=== PATIENT | female | born 1935 | race Caucasian/White ===

== ENCOUNTER → 2017-01-31 | Outpatient (REF) | payer MEDICARE ==
[2017-01-31 12:21] LABS: ALBUMIN 4.2 GM/DL (3.2-5.2); ALBUMIN/GLOBULIN RATIO 1.08 (1.00-1.93); BILIRUBIN,TOTAL 0.4 MG/DL (0.2-1.0); CALCIUM LEVEL 9.5 MG/DL (8.8-10.2); CREATININE FOR GFR 1.11 MG/DL (0.55-1.02); GLOMERULAR FILTRATION RATE 50.5 (>39); TOTAL PROTEIN 8.1 GM/DL (6.4-8.2)
[2017-01-31 12:38] LABS: BASO % 0.4 % (0.0-1.0); EOS # 0.2 K/mm3 (0.0-0.50); LARGE UNSTAINED CELL # 0.1 K/mm3 (0.0-0.4); LARGE UNSTAINED CELL % 1.6 % (0.0-4.0); LYMPH # 1.6 K/mm3 (1.5-4.5); MEAN CORPUSCULAR HEMOGLOBIN 28.1 pg (27.0-33.0); MEAN CORPUSCULAR HGB CONC 31.3 g/dl (32.0-36.5); MEAN CORPUSCULAR VOLUME 89.8 fl (80.0-96.0); MONO # 0.4 K/mm3 (0.0-0.8); MONO % 6.1 % (0.0-5.0); NEUTROPHILS # 3.7 K/mm3 (1.8-7.7); NEUTROPHILS % 62.9 % (36.0-66.0); PLATELET COUNT, AUTOMATED 287 k/mm3 (150-450); RED CELL DISTRIBUTION WIDTH 13.9 % (11.5-14.5); WHITE BLOOD COUNT 5.8 K/mm3 (4.0-10.0)
== END ==
LOC: M SFHCPLAZ 07:58
PROVIDERS: ATTEND Nurse Practitioner Family
DX: H11.32 Conjunctival hemorrhage, left eye (principal); I10 Essential (primary) hypertension; E78.2 Mixed hyperlipidemia
CPT/HCPCS: 36415; 80053; 80061; 85025; G0463

== ENCOUNTER → 2017-07-30 | Outpatient (REF) | payer MEDICARE ==
[2017-07-30 12:11] LABS: ALBUMIN/GLOBULIN RATIO 0.91 (1.00-1.93); BILIRUBIN,TOTAL 0.4 MG/DL (0.2-1.0); CALCIUM LEVEL 9.7 MG/DL (8.8-10.2); CREATININE FOR GFR 1.06 MG/DL (0.55-1.02); FREE T4 0.91 NG/DL (0.76-1.46); GLOMERULAR FILTRATION RATE 53.1 (>32); POTASSIUM SERUM 4.9 MEQ/L (3.5-5.1); TOTAL PROTEIN 8.4 GM/DL (6.4-8.2)
== END ==
LOC: M SFHCPLAZ 11:22
PROVIDERS: ATTEND Family Medicine
DX: I10 Essential (primary) hypertension (principal); E78.2 Mixed hyperlipidemia; F32.9 Major depressive disorder, single episode, unspecified

== ENCOUNTER → 2018-08-22 | Outpatient (REF) | payer MEDICARE ==
[2018-08-22 12:46] LABS: ALBUMIN 4.3 GM/DL (3.2-5.2); ALBUMIN/GLOBULIN RATIO 1.13 (1.00-1.93); ALKALINE PHOSPHATASE 64 U/L (45-117); ALT/SGPT 17 U/L (12-78); ANION GAP 10 MEQ/L (8-16); AST/SGOT 18 U/L (7-37); BILIRUBIN,TOTAL 0.4 MG/DL (0.2-1.0); BLOOD UREA NITROGEN 21 MG/DL (7-18); CALCIUM LEVEL 9.7 MG/DL (8.8-10.2); CARBON DIOXIDE LEVEL 28 MEQ/L (21-32); CHLORIDE LEVEL 106 MEQ/L (98-107); CHOLESTEROL LEVEL 195 MG/DL (<200); CHOLESTEROL RISK RATIO 3.305 (<5); CREATININE FOR GFR 1.08 MG/DL (0.55-1.30); FREE T4 0.92 NG/DL (0.76-1.46); GLOMERULAR FILTRATION RATE 51.8 (>32); GLUCOSE, FASTING 105 MG/DL (70-100); HDL CHOLESTEROL 59 MG/DL (>40); LDL CHOLESTEROL 59 MG/DL (<100); NON-HDL-C 136 MG/DL; POTASSIUM SERUM 4.9 MEQ/L (3.5-5.1); SODIUM LEVEL 144 MEQ/L (136-145); THYROID STIMULATING HORMONE 0.662 uIU/ML (0.358-3.740); TOTAL PROTEIN 8.1 GM/DL (6.4-8.2); TRIGLYCERIDES LEVEL 385 MG/DL (<150)
== END ==
LOC: M SFHCPLAZ 08:38
DX: F32.9 Major depressive disorder, single episode, unspecified (principal); E78.2 Mixed hyperlipidemia
CPT/HCPCS: 84443

== ENCOUNTER → 2019-08-05 | Outpatient (REF) | payer MEDICARE ==
[2019-08-05 10:56] LABS: ALBUMIN 3.9 GM/DL (3.2-5.2); BILIRUBIN,TOTAL 0.3 MG/DL (0.2-1.0); CALCIUM LEVEL 9.5 MG/DL (8.8-10.2); CHOLESTEROL RISK RATIO 3.033 (<5); CREATININE FOR GFR 1.14 MG/DL (0.55-1.30); GLOMERULAR FILTRATION RATE 48.6 (>32); POTASSIUM SERUM 5.5 MEQ/L (3.5-5.1); TOTAL PROTEIN 8.1 GM/DL (6.4-8.2)
== END ==
LOC: M SFHCPLAZ 08:14
PROVIDERS: ATTEND Nurse Practitioner Family
DX: E78.2 Mixed hyperlipidemia (principal)

== ENCOUNTER → 2019-08-12 | Outpatient (REF) | payer MEDICARE ==
[2019-08-12 12:55] LABS: CALCIUM LEVEL 9.8 MG/DL (8.8-10.2); CREATININE FOR GFR 1.19 MG/DL (0.55-1.30); GLOMERULAR FILTRATION RATE 46.2 (>32); POTASSIUM SERUM 5.4 MEQ/L (3.5-5.1)
== END ==
LOC: M SFHCPLAZ 08:26
PROVIDERS: ATTEND Nurse Practitioner Family
DX: E87.5 Hyperkalemia (principal); Z23 Encounter for immunization
CPT/HCPCS: 36415; 80048; 90682; G0008; G0463

== ENCOUNTER → 2019-08-21 | Outpatient (REF) | payer MEDICARE ==
[2019-08-21 11:42] LABS: CALCIUM LEVEL 9.6 MG/DL (8.8-10.2); CREATININE FOR GFR 1.16 MG/DL (0.55-1.30); GLOMERULAR FILTRATION RATE 47.6 (>32); POTASSIUM SERUM 5.4 MEQ/L (3.5-5.1)
== END ==
LOC: M SFHCPLAZ 08:08
PROVIDERS: ATTEND Nurse Practitioner Family
DX: E87.5 Hyperkalemia (principal)

== ENCOUNTER → 2019-09-04 | Outpatient (REF) | payer MEDICARE ==
[2019-09-04 11:35] LABS: CALCIUM LEVEL 10.1 MG/DL (8.8-10.2); CREATININE FOR GFR 1.16 MG/DL (0.55-1.30); GLOMERULAR FILTRATION RATE 47.6 (>32); POTASSIUM SERUM 5.4 MEQ/L (3.5-5.1)
== END ==
LOC: M SFHCPLAZ 08:07
PROVIDERS: ATTEND Nurse Practitioner Family
DX: I10 Essential (primary) hypertension (principal)

== ENCOUNTER → 2019-09-18 | Outpatient (REF) | payer MEDICARE ==
[2019-09-18 11:21] LABS: CALCIUM LEVEL 9.8 MG/DL (8.8-10.2); CREATININE FOR GFR 1.19 MG/DL (0.55-1.30); GLOMERULAR FILTRATION RATE 46.2 (>32)
== END ==
LOC: M SFHCPLAZ 08:06
PROVIDERS: ATTEND Nurse Practitioner Family
DX: E87.5 Hyperkalemia (principal)

== ENCOUNTER → 2020-07-29 | Outpatient (REF) | payer MEDICARE ==
[2020-07-29 14:33] LABS: ALBUMIN 4.2 GM/DL (3.2-5.2); BILIRUBIN,TOTAL 0.4 MG/DL (0.2-1.0); CALCIUM LEVEL 10.3 MG/DL (8.8-10.2); CHOLESTEROL RISK RATIO 3.035 (<5); CREATININE FOR GFR 1.11 MG/DL (0.55-1.30); POTASSIUM SERUM 4.6 MEQ/L (3.5-5.1); TOTAL PROTEIN 8.1 GM/DL (6.4-8.2)
== END ==
LOC: M PLALAB 09:21
PROVIDERS: ATTEND Nurse Practitioner Family
DX: I12.9 Hypertensive chronic kidney disease with stage 1 through stage 4 chronic kidney disease, or unspecified chronic kidney disease (principal); E78.2 Mixed hyperlipidemia; N18.9 Chronic kidney disease, unspecified

== ENCOUNTER → 2021-01-19 | Outpatient (REF) | payer MEDICARE ==
[2021-01-19 18:32] LABS: HEMOGLOBIN A1c 5.4 %
[2021-01-19 18:37] LABS: BLOOD UREA NITROGEN 16 MG/DL (7-18); CALCIUM LEVEL 9.6 MG/DL (8.8-10.2); CARBON DIOXIDE LEVEL 28 MEQ/L (21-32); CHLORIDE LEVEL 110 MEQ/L (98-107); CREATININE FOR GFR 0.91 MG/DL (0.55-1.30); GLOMERULAR FILTRATION RATE > 60.0 (>32); GLUCOSE, FASTING 107 MG/DL (70-100); POTASSIUM SERUM 4.6 MEQ/L (3.5-5.1); SODIUM LEVEL 143 MEQ/L (136-145); URIC ACID 3.9 MG/DL (2.6-6.0)
== END ==
LOC: M SFHCPLAZ 15:41
PROVIDERS: ATTEND Nurse Practitioner Family
DX: R73.01 Impaired fasting glucose (principal); I12.9 Hypertensive chronic kidney disease with stage 1 through stage 4 chronic kidney disease, or unspecified chronic kidney disease; M25.541 Pain in joints of right hand

== ENCOUNTER → 2021-01-19 | Outpatient (CLI) | payer MEDICARE ==
--- NOTE | 2021-01-20 08:33 | REPPI ---
INDICATION: PAIN RIGHT HAND. COMPARISON: None. TECHNIQUE: Four views of the right hand are presented. FINDINGS: Four views of the right hand demonstrate diffuse osteoporosis. There is degenerative widening of the navicular lunate interval. 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 There is subcortical cyst formation in the navicula. There is mild osteoarthritis at the 1st carpometacarpal articulation. Moderate osteoarthritic changes are seen at the DIP joints of the index and long and small finger. IP joint osteoarthritic spurring is seen at the thumb. There is mild spurring at the PIP joints of the index and long finger. Soft tissue swelling is seen most notably at the index finger DIP and the long finger PIP articulations. No acute erosive changes are seen. No fracture is seen.. . No opaque foreign body noted. IMPRESSION: Osteoarthritic changes. Diffuse osteoporosis. No acute bony abnormality.. <Electronically signed by Dimitry Domingo > 01/20/21 [id number]
== END ==
LOC: M PLAIMG 15:43
PROVIDERS: ATTEND Nurse Practitioner Family
DX: M19.041 Primary osteoarthritis, right hand (principal); M25.541 Pain in joints of right hand; R73.01 Impaired fasting glucose; I12.9 Hypertensive chronic kidney disease with stage 1 through stage 4 chronic kidney disease, or unspecified chronic kidney disease
CPT/HCPCS: 36415; 73130; 80048; 83036; 84550; G0463

== ENCOUNTER → 2021-03-07 | Outpatient (CLI) | payer MEDICARE ==
--- NOTE | 2021-03-07 13:33 | DEXAMM ---
INDICATION: M83.0 AGE REL OSTEOPOROSIS W/O FX. COMPARISON: None. TECHNIQUE: Bone density was measured using dual-energy x-ray absorptiometry (DEXA). FINDINGS: AP SPINE L1-L4 BMD 1.556 g/cm2 Young Adult T-Score 2.9 Age Matched Z-Score 4.8. LT FEMUR, TOTAL BMD 0.805 g/cm2 Young Adult T-Score -1.6 Age Matched Z-Score 0.6. LT NECK BMD 0.824 g/cm2 Young Adult T-Score -1.5 Age Matched Z-Score 0.8. RT FEMUR, TOTAL BMD 0.840 g/cm2 Young Adult T-Score -1.3 Age Matched Z-Score 0.9. RT NECK BMD 0.780 g/cm2 Young Adult T-Score -1.9 Age Matched Z-Score 0.5. IMPRESSION: There is normal bone density of the spine. There is low bone density of the left hip. There is low bone density of the right hip. FOLLOW-UP: Recommendation for the next bone density exam: 2 years. <Electronically signed by Ovidio Baxter > 03/07/21 [id number]
== END ==
LOC: M WHC 12:42
PROVIDERS: ATTEND Nurse Practitioner Family
DX: M81.0 Age-related osteoporosis without current pathological fracture (principal)

== ENCOUNTER → 2021-08-18 | Outpatient (CLI) | payer MEDICARE ==
[2021-08-18 13:36] LABS: HEMOGLOBIN A1c 5.3 %
[2021-08-18 14:01] LABS: CREATININE FOR GFR 1.01 MG/DL (0.55-1.30); GLOMERULAR FILTRATION RATE 55.6 (>32); POTASSIUM SERUM 4.7 MEQ/L (3.5-5.1)
[2021-08-18 14:02] LABS: ALBUMIN 3.8 GM/DL (3.2-5.2); BILIRUBIN,TOTAL 0.3 MG/DL (0.2-1.0); CALCIUM LEVEL 9.3 MG/DL (8.8-10.2); TOTAL PROTEIN 7.7 GM/DL (6.4-8.2)
[2021-08-18 14:12] LABS: MALB URINE SIEMENS 23.8 MG/L; MAU/CREAT RATIO 18.1 MCG/MG (0.0-30.0)
== END ==
LOC: M PLALAB 11:07
PROVIDERS: ATTEND Nurse Practitioner Family
DX: I12.9 Hypertensive chronic kidney disease with stage 1 through stage 4 chronic kidney disease, or unspecified chronic kidney disease (principal); R73.01 Impaired fasting glucose; Z23 Encounter for immunization
CPT/HCPCS: 36415; 80053; 82043; 83036; 90682; G0008; G0463

== ENCOUNTER → 2022-02-23 | Outpatient (CLI) | payer MEDICARE ==
[2022-02-23 13:20] LABS: BASO # 0.1 10^3/uL (0.0-0.2); BASO % 0.9 % (0.0-1.0); EOS # 0.1 10^3/uL (0.0-0.5); EOS % 1.8 % (0.0-3.0); HEMATOCRIT 43.4 % (36.0-47.0); HEMOGLOBIN 13.5 g/dl (12.0-15.5); LYMPH # 2.3 10^3/uL (1.5-5.0); LYMPH % 30.1 % (24.0-44.0); MEAN CORPUSCULAR HEMOGLOBIN 27.7 pg (27.0-33.0); MEAN CORPUSCULAR HGB CONC 31.1 g/dl (32.0-36.5); MEAN CORPUSCULAR VOLUME 89.1 fl (80.0-96.0); MONO # 0.5 10^3/uL (0.0-0.8); MONO % 6.5 % (2.0-8.0); NEUTROPHILS # 4.6 10^3/uL (1.5-8.5); NEUTROPHILS % 60.3 % (36.0-66.0); PLATELET COUNT, AUTOMATED 330 10^3/uL (150-450); RED BLOOD COUNT 4.87 10^6/uL (4.00-5.40); WHITE BLOOD COUNT 7.6 10^3/uL (4.0-10.0)
[2022-02-23 13:30] LABS: ALBUMIN 3.9 GM/DL (3.2-5.2); ALT/SGPT 18 U/L (12-78); BILIRUBIN,TOTAL 0.3 MG/DL (0.2-1.0); BLOOD UREA NITROGEN 19 MG/DL (7-18); CARBON DIOXIDE LEVEL 29 MEQ/L (21-32); CHLORIDE LEVEL 108 MEQ/L (98-107); CHOLESTEROL LEVEL 165 MG/DL (<200); CHOLESTEROL RISK RATIO 3.235 (<5); CREATININE FOR GFR 1.08 MG/DL (0.55-1.30); GLOMERULAR FILTRATION RATE 51.5 (>32); GLUCOSE, FASTING 99 MG/DL (70-100); HDL CHOLESTEROL 51 MG/DL (>40); NON-HDL-C 114 MG/DL; POTASSIUM SERUM 4.8 MEQ/L (3.5-5.1); SODIUM LEVEL 139 MEQ/L (136-145); TOTAL PROTEIN 7.8 GM/DL (6.4-8.2); TRIGLYCERIDES LEVEL 450 MG/DL (<150)
[2022-02-23 13:39] LABS: HEMOGLOBIN A1c 5.5 %
[2022-02-23 13:57] LABS: MALB URINE SIEMENS 22.8 MG/L; MAU/CREAT RATIO 13.4 MCG/MG (0.0-30.0)
== END ==
LOC: M PLALAB 10:43
PROVIDERS: ATTEND Physician Assistant
DX: I10 Essential (primary) hypertension (principal)

== ENCOUNTER → 2023-03-21 | Outpatient (CLI) | payer MEDICARE ==
[2023-03-21 14:20] LABS: APPEARANCE, URINE HAZY (CLEAR); BACTERIA, URINE AUTO 2+ (NEGATIVE); BILIRUBIN, URINE AUTO NEGATIVE (NEGATIVE); BLOOD, URINE BLOOD 1+ (NEGATIVE); COLOR, URINE YELLOW (YELLOW); GLUCOSE, URINE (UA) AUTO NEGATIVE (NEGATIVE); KETONE, URINE AUTO NEGATIVE (NEGATIVE); LEUKOCYTE ESTERASE, URINE AUTO 2+ (NEGATIVE); MUCUS, URINE SMALL (NEGATIVE); NITRITE, URINE AUTO POSITIVE (NEGATIVE); PROTEIN, URINE AUTO NEGATIVE (NEGATIVE); RBC, URINE AUTO 1 /HPF (0-3); SQUAMOUS EPITHELIAL CELL UR AU 3 /HPF (0-6); UROBILINOGEN, URINE AUTO 0.2 mg/dL (0.0-2.0); WBC, URINE AUTO 8 /HPF (0-3)
[2023-03-21 15:27] LABS: BASO % 0.8 % (0.0-1.0); EOS # 0.1 10^3/uL (0.0-0.5); EOS % 2.4 % (0.0-3.0); HEMATOCRIT 39.7 % (36.0-47.0); HEMOGLOBIN 11.6 g/dl (12.0-15.5); LYMPH # 1.4 10^3/uL (1.5-5.0); LYMPH % 27.1 % (24.0-44.0); MEAN CORPUSCULAR HEMOGLOBIN 26.5 pg (27.0-33.0); MEAN CORPUSCULAR HGB CONC 29.2 g/dl (32.0-36.5); MEAN CORPUSCULAR VOLUME 90.8 fl (80.0-96.0); MONO # 0.4 10^3/uL (0.0-0.8); MONO % 8.3 % (2.0-8.0); NEUTROPHILS # 3.2 10^3/uL (1.5-8.5); NEUTROPHILS % 60.8 % (36.0-66.0); PLATELET COUNT, AUTOMATED 325 10^3/uL (150-450); RED BLOOD COUNT 4.37 10^6/uL (4.00-5.40); WHITE BLOOD COUNT 5.3 10^3/uL (4.0-10.0)
[2023-03-21 15:40] LABS: ALBUMIN 3.6 G/DL (3.2-5.2); BILIRUBIN,TOTAL 0.3 MG/DL (0.3-1.2); CALCIUM LEVEL 10.1 MG/DL (8.3-10.6); CHOLESTEROL RISK RATIO 3.94 (<5); FREE T4 0.95 NG/DL (0.89-1.76); GLOMERULAR FILTRATION RATE 56.1 (>32); HDL CHOLESTEROL 42.1 MG/DL (>40); LDL CHOLESTEROL 48.9 MG/DL (<100); NON-HDL-C 123.9 MG/DL; POTASSIUM SERUM 4.9 MMOL/L (3.5-5.1); THYROID STIMULATING HORMONE 0.461 uIU/ML (0.55-4.78); TOTAL PROTEIN 7.3 G/DL (5.7-8.2)
[2023-03-21 15:42] LABS: TOTAL 25(OH) VITAMIN D 74.6 NG/ML (20.0-100.0)
== END ==
LOC: M PLALAB 10:31
PROVIDERS: ATTEND Physician Assistant
DX: R41.3 Other amnesia (principal); R63.4 Abnormal weight loss; Z79.899 Other long term (current) drug therapy

== ENCOUNTER → 2024-01-02 | Outpatient (CLI) | payer MEDICARE ==
[2024-01-02 17:24] LABS: BASO % 0.5 % (0.0-1.0); EOS # 0.1 10^3/uL (0.0-0.5); EOS % 1.2 % (0.0-3.0); HEMOGLOBIN 12.9 g/dl (12.0-15.5); LYMPH % 35.3 % (24.0-44.0); MEAN CORPUSCULAR HEMOGLOBIN 26.6 pg (27.0-33.0); MEAN CORPUSCULAR HGB CONC 31.5 g/dl (32.0-36.5); MEAN CORPUSCULAR VOLUME 84.5 fl (80.0-96.0); MONO # 0.4 10^3/uL (0.0-0.8); MONO % 7.4 % (2.0-8.0); NEUTROPHILS # 3.2 10^3/uL (1.5-8.5); NEUTROPHILS % 55.2 % (36.0-66.0); PLATELET COUNT, AUTOMATED 323 10^3/uL (150-450); RED BLOOD COUNT 4.85 10^6/uL (4.00-5.40); WHITE BLOOD COUNT 5.7 10^3/uL (4.0-10.0)
[2024-01-02 17:48] LABS: HEMOGLOBIN A1c 5.3 % (4.0-6.0)
[2024-01-02 17:51] LABS: FREE T4 1.13 NG/DL (0.89-1.76); THYROID STIMULATING HORMONE 0.873 uIU/ML (0.55-4.78)
[2024-01-02 17:52] LABS: BILIRUBIN,TOTAL 0.5 MG/DL (0.3-1.2); CHOLESTEROL RISK RATIO 3.45 (<5); CREATININE FOR GFR 1.19 MG/DL (0.55-1.30); GLOMERULAR FILTRATION RATE 45.8 (>32); HDL CHOLESTEROL 48.6 MG/DL (>40); LDL CHOLESTEROL 76.2 MG/DL (<100); NON-HDL-C 119.4 MG/DL; POTASSIUM SERUM 5.1 MMOL/L (3.5-5.1); TOTAL PROTEIN 7.6 G/DL (5.7-8.2)
== END ==
LOC: M PLALAB 13:53
PROVIDERS: ATTEND Physician Assistant
DX: Z00.00 Encounter for general adult medical examination without abnormal findings (principal); E78.2 Mixed hyperlipidemia; M15.9 Polyosteoarthritis, unspecified; I10 Essential (primary) hypertension; Z79.899 Other long term (current) drug therapy

== ENCOUNTER 2025-05-19 12:23 | Emergency (ER) | payer MEDICARE ==
[2025-05-19] MEDS ORDERED: HOME MED LIST COMPLETE! XX SCH (13:45)
[2025-05-19 15:30] VITALS: BP 126/74; TEMP 98.9; O2SAT 98
== END 2025-05-19 15:43 | disposition home or self-care (01) ==
LOC: EDBD 12:23 → M ED 12:23
DX: S80.12XA Contusion of left lower leg, initial encounter (principal); Y92.019 Unspecified place in single-family (private) house as the place of occurrence of the external cause; Y93.9 Activity, unspecified; Y99.9 Unspecified external cause status; W19.XXXA Unspecified fall, initial encounter; N18.9 Chronic kidney disease, unspecified; J44.9 Chronic obstructive pulmonary disease, unspecified; F17.210 Nicotine dependence, cigarettes, uncomplicated; Z88.0 Allergy status to penicillin

== ENCOUNTER 2025-09-29 17:48 | Inpatient (IN) | payer MEDICARE ==
[~2025-09-29] VITALS: Ht 157.5 cm; Wt 45.4 kg
[2025-09-29 19:14] LABS: BASO # 0.0 10^3/uL (0.0-0.2); BASO % 0.2 % (0.0-1.0); EOS # 0.0 10^3/uL (0.0-0.5); EOS % 0.0 % (0.0-3.0); LYMPH # 0.5 10^3/uL (1.5-5.0); LYMPH % 4.3 % (24.0-44.0); MONO # 0.7 10^3/uL (0.0-0.8); MONO % 5.9 % (2.0-8.0); NEUTROPHILS # 11.0 10^3/uL (1.5-8.5); NEUTROPHILS % 88.9 % (36.0-66.0); PLATELET COUNT, AUTOMATED 316 10^3/uL (150-450)
[2025-09-29 19:28] LABS: CK-MB VALUE MASS 11.8 NG/ML (<3.6)
[2025-09-29 19:30] LABS: ALT/SGPT 20.0 U/L (7.0-40); AST/SGOT 46.0 U/L (<34); CALCIUM LEVEL 9.7 MG/DL (8.3-10.6); CARBON DIOXIDE LEVEL 25.0 MMOL/L (20-31); CHLORIDE LEVEL 101.0 MMOL/L (98-107); CPK CREATINE PHOSPHOKINASE 560.0 U/L (34-145); CREATININE FOR GFR 1.02 MG/DL (0.55-1.30); GLOMERULAR FILTRATION RATE 52.9 (>32); MB/CK RELATIVE INDEX 2.1 (< OR =4); POTASSIUM SERUM 4.0 MMOL/L (3.5-5.1); SODIUM LEVEL 140.0 MMOL/L (136-145)
[2025-09-29] MEDS: MORPHINE 4 MG/ML 1 ML VIAL IV ONE (19:31)
[2025-09-29] MEDS ORDERED: MORPHINE 2 MG/ML 1 ML VIAL IV PRN ×5 (20:20→21:15)
[2025-09-29] MEDS ORDERED: ONDANSETRON 4MG/2ML VIAL IV PRN ×2 (20:20→21:10)
[2025-09-29] MEDS ORDERED: ONDANSETRON 4MG TAB PO PRN ×2 (20:20→21:10)
[2025-09-29] MEDS ORDERED: SERT50TA29 PO (20:53)
[2025-09-29] MEDS ORDERED: HOME MED LIST COMPLETE! XX SCH (20:55)
[2025-09-29] MEDS ORDERED: SERTRALINE HCL 50 MG TAB PO SCH (21:00)
[2025-09-29] MEDS: SERTRALINE HCL 50 MG TAB PO SCH (21:00)
[2025-09-30 08:16] LABS: PLATELET COUNT, AUTOMATED 308 10^3/uL (150-450)
[2025-09-30 08:46] LABS: CALCIUM LEVEL 10.0 MG/DL (8.3-10.6); CARBON DIOXIDE LEVEL 25.0 MMOL/L (20-31); CHLORIDE LEVEL 102.0 MMOL/L (98-107); CREATININE FOR GFR 1.25 MG/DL (0.55-1.30); GLOMERULAR FILTRATION RATE 41.5 (>32); MAGNESIUM LEVEL 2.1 MG/DL (1.8-2.4); POTASSIUM SERUM 4.5 MMOL/L (3.5-5.1); SODIUM LEVEL 141.0 MMOL/L (136-145)
[2025-09-30] MEDS: PANTOPRAZOLE 40MG VIAL IV SCH (09:28)
[2025-09-30] MEDS: KETOROLAC 30 MG/ML 1 ML VIAL IV SCH (09:29)
[2025-09-30] MEDS: NICOTINE 21 MG/24 HR 1 EA TRANSDERMAL TD SCH (09:32)
[2025-09-30] MEDS: NS (Normal Saline) 0.9% 1,000 ML IV SCH (10:16)
[2025-09-30 16:11] VITALS: BP 157/83; TEMP 99.2; O2SAT 91
[2025-09-30 20:42] VITALS: BP 175/86; TEMP 98.7; O2SAT 96
[2025-09-30] MEDS: MORPHINE 2 MG/ML 1 ML VIAL IV PRN (20:46)
[2025-10-01] VITALS (13 sets, daily range): BP systolic 128–187; BP diastolic 65–102; TEMP 97.4–98.7; O2SAT 95–97
[2025-10-01] MEDS: **hydrALAZINE HCL** 25 MG TAB PO SCH (06:00)
[2025-10-01 08:07] LABS: BASO # 0.0 10^3/uL (0.0-0.2); BASO % 0.2 % (0.0-1.0); EOS # 0.0 10^3/uL (0.0-0.5); EOS % 0.5 % (0.0-3.0); LYMPH # 1.0 10^3/uL (1.5-5.0); LYMPH % 11.9 % (24.0-44.0); MONO # 0.7 10^3/uL (0.0-0.8); MONO % 8.8 % (2.0-8.0); NEUTROPHILS # 6.2 10^3/uL (1.5-8.5); NEUTROPHILS % 77.6 % (36.0-66.0); PLATELET COUNT, AUTOMATED 219 10^3/uL (150-450)
[2025-10-01 08:30] LABS: CALCIUM LEVEL 9.3 MG/DL (8.3-10.6); CARBON DIOXIDE LEVEL 23.0 MMOL/L (20-31); CHLORIDE LEVEL 110.0 MMOL/L (98-107); CREATININE FOR GFR 1.31 MG/DL (0.55-1.30); GLOMERULAR FILTRATION RATE 39.2 (>32); POTASSIUM SERUM 3.8 MMOL/L (3.5-5.1); SODIUM LEVEL 146.0 MMOL/L (136-145)
[2025-10-01] MEDS: TRANEXAMIC ACID 100 MG/ML 10ML VIAL As Ordered ONE (13:13)
[2025-10-01] MEDS ORDERED: KETAMINE HCL 200 MG/20 ML VIAL As Ordered ONE (13:55)
[2025-10-01] MEDS ORDERED: MIDAZOLAM INJ 2 MG/2 ML VIAL As Ordered ONE (13:55)
[2025-10-01] MEDS: KETOROLAC 30 MG/ML 1 ML VIAL As Ordered ONE (15:47)
[2025-10-01] MEDS: VANCOMYCIN 1000MG/20ML VIAL As Ordered ONE (15:47)
[2025-10-01] MEDS ORDERED: HYDROMORPHONE HCL 0.5 MG/0.5 ML SYRINGE IV PRN (16:20)
[2025-10-01] MEDS ORDERED: ONDANSETRON 4MG/2ML VIAL IV PRN (16:20)
[2025-10-02] MEDS: OLANZapine ORAL DISINTEGRATING TAB 5MG PO PRN (01:01)
[2025-10-02 06:30] LABS: BASO # 0.0 10^3/uL (0.0-0.2); BASO % 0.3 % (0.0-1.0); EOS # 0.1 10^3/uL (0.0-0.5); EOS % 0.7 % (0.0-3.0); LYMPH # 0.7 10^3/uL (1.5-5.0); LYMPH % 8.2 % (24.0-44.0); MONO # 0.8 10^3/uL (0.0-0.8); MONO % 8.6 % (2.0-8.0); NEUTROPHILS # 7.1 10^3/uL (1.5-8.5); NEUTROPHILS % 81.2 % (36.0-66.0); PLATELET COUNT, AUTOMATED 247 10^3/uL (150-450)
[2025-10-02 07:02] LABS: CALCIUM LEVEL 8.9 MG/DL (8.3-10.6); CARBON DIOXIDE LEVEL 23.0 MMOL/L (20-31); CHLORIDE LEVEL 108.0 MMOL/L (98-107); CREATININE FOR GFR 1.03 MG/DL (0.55-1.30); GLOMERULAR FILTRATION RATE 52.3 (>32); POTASSIUM SERUM 3.4 MMOL/L (3.5-5.1); SODIUM LEVEL 143.0 MMOL/L (136-145)
[2025-10-02] MEDS: ACETAMINOPHEN 500 MG TAB PO SCH (09:00)
[2025-10-02] MEDS: POTASSIUM CHLORIDE 10MEQ SR TABLET PO ONE (09:25)
[2025-10-02] MEDS: amLODIPine 5 MG TAB PO SCH (09:28)
[2025-10-02 10:00] VITALS: BP 154/70; TEMP 99.2; O2SAT 95
[2025-10-02 14:00] VITALS: BP 130/61; TEMP 98.4; O2SAT 98
[2025-10-02] MEDS: ENOXAPARIN 30 MG/0.3 ML SYRINGE (J1650 PER 10MG) SC SCH (16:06)
[2025-10-02 18:00] VITALS: BP 120/55; TEMP 98.4; O2SAT 96
[2025-10-02 20:10] VITALS: BP 138/62; TEMP 99.5; O2SAT 95
[2025-10-03 05:01] VITALS: BP 166/75; TEMP 98.7; O2SAT 95
[2025-10-03 08:54] LABS: BASO # 0.0 10^3/uL (0.0-0.2); BASO % 0.3 % (0.0-1.0); EOS # 0.1 10^3/uL (0.0-0.5); EOS % 1.3 % (0.0-3.0); LYMPH # 1.2 10^3/uL (1.5-5.0); LYMPH % 17.0 % (24.0-44.0); MONO # 0.7 10^3/uL (0.0-0.8); MONO % 9.4 % (2.0-8.0); NEUTROPHILS # 5.1 10^3/uL (1.5-8.5); NEUTROPHILS % 71.6 % (36.0-66.0); PLATELET COUNT, AUTOMATED 270 10^3/uL (150-450)
[2025-10-03 09:30] LABS: CALCIUM LEVEL 9.2 MG/DL (8.3-10.6); CARBON DIOXIDE LEVEL 24.0 MMOL/L (20-31); CHLORIDE LEVEL 110.0 MMOL/L (98-107); CREATININE FOR GFR 1.17 MG/DL (0.55-1.30); GLOMERULAR FILTRATION RATE 44.9 (>32); POTASSIUM SERUM 3.9 MMOL/L (3.5-5.1); SODIUM LEVEL 145.0 MMOL/L (136-145)
[2025-10-04 01:04] VITALS: BP 133/69; TEMP 98.8; O2SAT 94
[2025-10-04] MEDS: PANTOPRAZOLE 40MG TAB PO SCH (09:38)
[2025-10-04] MEDS ORDERED: BISACODYL 10 MG SUPP PR PRN (14:35)
[2025-10-04] MEDS: BISACODYL 10 MG SUPP PR ONE (15:11)
[2025-10-04] MEDS: QUEtiapine FUMARATE 12.5 MG HALF-TAB PO PRN (20:43)
[2025-10-04] MEDS: SENNOSIDES/DOCUSATE SODIUM 8.6 MG/50MG TAB PO SCH (20:43)
[2025-10-05] MEDS: MOM 30 ML SUSPENSION UDC PO ONE (16:09)
[2025-10-05] MEDS: SENNOSIDES/DOCUSATE SODIUM 8.6 MG/50MG TAB PO SCH (20:28)
[2025-10-06 06:30] VITALS: BP 193/86; TEMP 98.5; O2SAT 97
[2025-10-06 06:58] VITALS: BP 171/98; O2SAT 96
[2025-10-06 08:28] LABS: BASO # 0.0 10^3/uL (0.0-0.2); BASO % 0.4 % (0.0-1.0); EOS # 0.2 10^3/uL (0.0-0.5); EOS % 2.4 % (0.0-3.0); LYMPH # 1.3 10^3/uL (1.5-5.0); LYMPH % 16.6 % (24.0-44.0); MONO # 0.7 10^3/uL (0.0-0.8); MONO % 8.7 % (2.0-8.0); NEUTROPHILS # 5.7 10^3/uL (1.5-8.5); NEUTROPHILS % 71.3 % (36.0-66.0); PLATELET COUNT, AUTOMATED 379 10^3/uL (150-450)
[2025-10-06 08:53] LABS: CALCIUM LEVEL 9.7 MG/DL (8.3-10.6); CARBON DIOXIDE LEVEL 28.0 MMOL/L (20-31); CHLORIDE LEVEL 105.0 MMOL/L (98-107); CREATININE FOR GFR 1.18 MG/DL (0.55-1.30); GLOMERULAR FILTRATION RATE 44.4 (>32); POTASSIUM SERUM 4.6 MMOL/L (3.5-5.1); SODIUM LEVEL 140.0 MMOL/L (136-145)
[2025-10-07 06:33] VITALS: BP 164/74; TEMP 99.1; O2SAT 97
[2025-10-08 06:59] VITALS: BP 161/69; TEMP 98.4; O2SAT 98
[2025-10-09 06:17] VITALS: BP 158/58; TEMP 98.6; O2SAT 96
[2025-10-10 05:20] VITALS: BP 145/65; TEMP 98.9; O2SAT 95
[2025-10-10 09:00] VITALS: BP 136/63; TEMP 98.4; O2SAT 96
[2025-10-11 06:00] VITALS: BP 128/68; TEMP 98.2; O2SAT 95
[2025-10-11 09:24] VITALS: BP 137/61; TEMP 98.3; O2SAT 96
[2025-10-12 06:37] VITALS: BP 172/90; TEMP 97.4; O2SAT 98
[2025-10-12 07:40] VITALS: BP 137/63; TEMP 98.6; O2SAT 95
[2025-10-12 09:00] VITALS: BP 137/63; TEMP 98.6; O2SAT 95
[2025-10-12] MEDS: MOM 30 ML SUSPENSION UDC PO PRN (10:50)
[2025-10-12] MEDS: CALCIUM CARBONATE 500 MG CHEW U/D PO ONE (16:07)
[2025-10-12] MEDS: PANTOPRAZOLE 40MG TAB PO ONE (16:08)
[2025-10-12] MEDS: SUCRALFATE SUSP 1GM/10ML UD PO ONE (16:08)
[2025-10-12 16:15] LABS: CK-MB VALUE MASS 3.4 NG/ML (<3.6)
[2025-10-12 16:16] LABS: CPK CREATINE PHOSPHOKINASE 90.0 U/L (34-145); MB/CK RELATIVE INDEX 3.77 (< OR =4)
[2025-10-12] MEDS: NITROGLYCERIN 0.4 MG SUBL TABLET SL ONE (16:16)
[2025-10-13 09:00] VITALS: BP 156/67; TEMP 98.6; O2SAT 95
[2025-10-14 06:07] VITALS: BP 141/63; TEMP 98.4; O2SAT 97
[2025-10-14 08:59] VITALS: BP 152/69
[2025-10-14] MEDS ORDERED: AMLO1TAB24 PO (12:01)
[2025-10-14] MEDS ORDERED: COLA100C5 PO (12:01)
[2025-10-14] MEDS ORDERED: SERO1TAB3 PO (12:01)
[2025-10-14] MEDS ORDERED: ENOX30IN3 SC (12:01)
[2025-10-14] MEDS ORDERED: OXYC-517 PO (12:01)
[2025-10-14] MEDS ORDERED: ACET-683 PO (12:01)
[2025-10-14] MEDS ORDERED: CELE100C PO (12:01)
== END 2025-10-14 12:20 | DRG 522 ==
LOC: M ED 17:48 → EDBD 17:48 → M ED INP 20:20 → M MS5PR 09-30 15:55
PROVIDERS: ADMIT Student in an Organized Health Care Education/Training Program; ATTEND Internal Medicine
PROC: 0SRR0JZ Replacement of Right Hip Joint, Femoral Surface with Synthetic Substitute, Open Approach (ICD-10-PCS; principal; 2025-10-01 13:30)
DX: S72.031A Displaced midcervical fracture of right femur, initial encounter for closed fracture (principal); F03.90 Unspecified dementia, unspecified severity, without behavioral disturbance, psychotic disturbance, mood disturbance, and anxiety; E78.5 Hyperlipidemia, unspecified; F32.A Depression, unspecified; F41.9 Anxiety disorder, unspecified; F17.200 Nicotine dependence, unspecified, uncomplicated; I10 Essential (primary) hypertension; R26.81 Unsteadiness on feet; E87.6 Hypokalemia; R41.0 Disorientation, unspecified; Z66 Do not resuscitate; Y93.9 Activity, unspecified; Y92.028 Other place in mobile home as the place of occurrence of the external cause; Y99.8 Other external cause status; W18.30XA Fall on same level, unspecified, initial encounter; Z79.899 Other long term (current) drug therapy; Z88.0 Allergy status to penicillin